=== PATIENT | male | born 1965 | race Caucasian/White ===

== ENCOUNTER 2018-12-24 06:45 | Day surgery (SDC) | payer OTHER ==
[~2018-12-24] VITALS: Ht 177.8 cm; Wt 90.6 kg
[~2018-12-24 06:45] MED LIST: ALBU90OI INH; BLOOD PRESSURE MED; ONDA4ODT MM; OSEL75CA PO
[2018-12-24] MEDS ORDERED: LISI5 (07:32)
[2018-12-24] MEDS ORDERED: Crestor5 MG (07:33)
== END 2018-12-24 09:15 | disposition home or self-care (01) ==
LOC: ORSCSDS 06:45
PROVIDERS: Internal Medicine Gastroenterology
PROC: 0DBL8ZX Excision of Transverse Colon, Via Natural or Artificial Opening Endoscopic, Diagnostic (ICD-10-PCS; principal; 2018-12-24 08:00)
PROC: 0DBM8ZX Excision of Descending Colon, Via Natural or Artificial Opening Endoscopic, Diagnostic (ICD-10-PCS; principal; 2018-12-24 08:00)
PROC: 0DBK8ZX Excision of Ascending Colon, Via Natural or Artificial Opening Endoscopic, Diagnostic (ICD-10-PCS; principal; 2018-12-24 08:00)
PROC: 0DBN8ZX Excision of Sigmoid Colon, Via Natural or Artificial Opening Endoscopic, Diagnostic (ICD-10-PCS; principal; 2018-12-24 08:00)
DX: Z12.11 Encounter for screening for malignant neoplasm of colon (principal); D12.2 Benign neoplasm of ascending colon; D12.3 Benign neoplasm of transverse colon; D12.4 Benign neoplasm of descending colon; K63.5 Polyp of colon; K64.8 Other hemorrhoids; E78.5 Hyperlipidemia, unspecified; I10 Essential (primary) hypertension; F17.210 Nicotine dependence, cigarettes, uncomplicated; Z79.899 Other long term (current) drug therapy
CPT/HCPCS: 88305; J2405; J2704; J7120

== ENCOUNTER 2022-09-25 07:45 | Day surgery (SDC) | payer BC ==
[~2022-09-25] VITALS: Ht 175.3 cm; Wt 96.6 kg
[~2022-09-25 07:45] MED LIST changes: +Crestor5 MG; +LISI5
[2022-09-25 09:24] VITALS: BP 118/77
== END 2022-09-25 09:39 | disposition home or self-care (01) ==
LOC: ORSCSDS 07:45
PROVIDERS: Internal Medicine Gastroenterology
PROC: 0DBL8ZX Excision of Transverse Colon, Via Natural or Artificial Opening Endoscopic, Diagnostic (ICD-10-PCS; principal; 2022-09-25 09:15)
DX: Z12.11 Encounter for screening for malignant neoplasm of colon (principal); D12.3 Benign neoplasm of transverse colon; K57.30 Diverticulosis of large intestine without perforation or abscess without bleeding; K64.8 Other hemorrhoids; Z86.010 Personal history of colon polyps; I10 Essential (primary) hypertension; Z79.899 Other long term (current) drug therapy
CPT/HCPCS: 88305; J2704; J7120

== ENCOUNTER 2024-09-17 19:00 | Emergency (ER) | payer OTHER ==
[~2024-09-17] VITALS: Ht 175.3 cm; Wt 101.6 kg
[2024-09-17] MEDS ORDERED: Ketorolac Tromethamine 15mg Vial IV ONE (19:45)
[2024-09-17 20:22] LABS: Source, Urine Clean Catch
[2024-09-17 20:22] LABS: BASOPHILS ABSOLUTE AUTO 0.06 K/mm3 (0.00-0.23); BASOPHILS PERCENT AUTO 0 % (0-2); EOSINOPHILS ABSOLUTE AUTO 0.04 K/mm3 (0.00-0.68); EOSINOPHILS PERCENT AUTO 0 % (0-6); Hematocrit 44.2 % (37.0-53.0); Hemoglobin 15.1 g/dL (13.5-17.5); IMMATURE GRAN ABSOLUTE AUTO 0.04 K/mm3 (0.00-0.10); IMMATURE GRAN PERCENT AUTO 0 % (0-1); LYMPHOCYTES ABSOLUTE AUTO 1.14 K/mm3 (0.84-5.20); LYMPHOCYTES PERCENT AUTO 8 % (21-46); MONOCYTES ABSOLUTE AUTO 0.68 K/mm3 (0.16-1.47); MONOCYTES PERCENT AUTO 5 % (4-13); Mean Corpuscular HGB 31.1 pg (26.0-34.0); Mean Corpuscular HGB Conc 34.2 g/dL (31.5-36.5); Mean Corpuscular Volume 91 fL (80-100); Mean Platelet Volume 9.4 fL (9.1-12.4); NEUTROPHILS ABSOLUTE AUTO 12.71 K/mm3 (1.96-9.15); NEUTROPHILS PERCENT AUTO 87 % (41-73); Platelet Count 291 K/mm3 (150-400); RDW Coefficient Variation 12.9 % (11.7-14.2); RDW Standard Deviation 42.4 fL (35.1-46.3); Red Blood Cell Count 4.86 M/mm3 (4.30-5.90); White Blood Cell Count 14.67 K/mm3 (4.00-11.30)
[2024-09-17 20:28] LABS: Appearance, Urine Turbid (Clear); Bilirubin, Urine Neg (Neg); Blood, Urine 4+ (Neg); Color, Urine Yellow (P-Yellow); Glucose Qualitative, Urine Neg (Neg); Ketones, Urine Neg (Neg); Leukocyte Esterase, Urine Neg (Neg); Nitrite, Urine Neg (Neg); Protein, Urine 2+ (Neg); Urobilinogen, Urine NORM (Normal)
[2024-09-17] MEDS ORDERED: TAMSULOSIN HCL0.4 M1 PO (20:30)
[2024-09-17] MEDS ORDERED: HYDROCODONE-AC1 EA19 PO (20:30)
[2024-09-17 20:39] LABS: Red Blood Cells, Urine 50-100 /hpf (0-2)
[2024-09-17 20:41] LABS: Bacteria Rare /hpf; Mucus Light (0-Heavy); Squamous Epithelial Cells Few /hpf (Few)
[2024-09-17 20:45] LABS: Albumin/Globulin Ratio 1.3 (0.8-1.8); Bilirubin, Total 0.4 mg/dL (0.1-1.0); Bun/Creatinine Ratio 15.5 (12.0-20.0); Calcium, Blood 8.6 mg/dL (8.5-10.1); Creatinine, Blood 0.9 mg/dL (0.60-1.20); Globulin, Blood 3.1 g/dL (2.2-4.0); Potassium, Blood 3.8 mmol/L (3.5-5.5); Total Protein, Blood 7.1 g/dL (6.4-8.2)
[2024-09-17 21:34] VITALS: BP 128/82
[2024-09-17] MEDS ORDERED: Ondansetron HCl 2 MG / ML 2ML Vial IV ONE (22:50)
[2024-09-17] MEDS ORDERED: NS 1,000 ML IV SCH (22:50)
[2024-09-17] MEDS ORDERED: RX Prepack 2 Tabs Ondansetron ODT 4MG UD ONE (22:50)
[2024-09-17] MEDS ORDERED: HYDROmorphone HCl/Pf 1MG SYR IV ONE (23:25)
[2024-09-18] MEDS ORDERED: ONDA4ODT MM (00:35)
== END 2024-09-18 00:54 | disposition home or self-care (01) ==
LOC: ER 19:00
PROVIDERS: Student in an Organized Health Care Education/Training Program
DX: N23 Unspecified renal colic (principal); Z79.891 Long term (current) use of opiate analgesic; Z79.899 Other long term (current) drug therapy; I10 Essential (primary) hypertension
CPT/HCPCS: 80053; 81001; 83690; 85025; 87086; 96374; 96375; 99283-25; A9270; J1171; J1885; J2405; J7030